=== PATIENT | male | born 1965 | race Caucasian/White ===

== ENCOUNTER 2019-04-03 14:49 | Emergency (ER) | payer BC ==
[2019-04-03 15:50] LABS: #Basophils 0.1 thou/uL (0.0-0.2); #Eosinphils 0.1 thou/uL (0.0-0.7); #Lymphocytes 1.2 thou/uL (1.20-3.40); #Monocytes 0.7 thou/uL (0.11-0.59); #Neutrophils 6.7 thou/uL (1.40-6.50); %Basophils 0.7 % (0.0-1.0); %Eosinophils 0.6 % (0.0-10.0); %Lymphocytes 13.4 % (21.0-51.0); %Monocytes 7.6 % (0.0-10.0); %Neutrophils 77.7 % (42.0-75.0); Hemoglobin 15.4 g/dL (14.0-18.0); Mean Corpuscular Hemoglobin 32.4 pg (27.0-31.0); Mean Corpuscular Volume 92.5 fL (78.0-98.0); Mean Platelet Volume 8.9 fL (7.4-10.4); Platelet Count 240 thou/uL (130-400); RBC Distribution Width 11.3 % (11.5-14.5); Red Blood Cell (RBC) Count 4.75 mill/uL (4.70-6.10); White Blood Cell (WBC) Count 8.7 thou/uL (4.8-10.8)
[2019-04-03 16:02] LABS: ALT (SGPT) 22 U/L (8-55); AST (SGOT) 16 U/L (5-34); Albumin 4.5 g/dL (3.5-5.0); Alkaline Phosphatase 50 U/L (40-150); Anion Gap 17 mmol/L (10-20); BUN (Urea Nitrogen) 13 mg/dL (8.4-25.7); Calc. Creatinine Clearance 0 mL/min (70-130); Calcium 9.8 mg/dL (7.8-10.44); Carbon Dioxide 24 mmol/L (22-29); Chloride 103 mmol/L (98-107); Estimated GFR-MDRD Greater than 90; Globulin 2.6 g/dL (2.4-3.5); Glucose 98 mg/dL (70-105); Potassium 3.8 mmol/L (3.5-5.1); Protein, Total 7.1 g/dL (6.0-8.3); Sodium 140 mmol/L (136-145)
== END 2019-04-03 16:27 | disposition home or self-care (01) ==
LOC: SCSER 14:49
DX: R07.9 Chest pain, unspecified (principal); R40.20 Unspecified coma; F32.9 Major depressive disorder, single episode, unspecified; R73.03 Prediabetes; E78.00 Pure hypercholesterolemia, unspecified; E78.5 Hyperlipidemia, unspecified; I10 Essential (primary) hypertension; Z79.899 Other long term (current) drug therapy
CPT/HCPCS: 80053; 84484; 85025; 93005

== ENCOUNTER 2019-05-20 11:04 | Outpatient (CLI) | payer BC ==
--- NOTE | 2019-05-20 11:58 | CT ---
CT ABDOMEN WITH CONTRAST CT PELVIS WITH CONTRAST: DATE: 05/20/2019 HISTORY: 53-year-old male with generalized abdominal pain, constipation, and weight loss. TECHNIQUE: IV injection of iodinated contrast media: Administered Oral contrast media:Administered FINDINGS: Liver: No focal solid mass. Spleen: No splenomegaly.. Pancreas: No mass or surrounding fat stranding.. Adrenals: No mass.. Kidneys: No hydronephrosis or enhancement abnormalities.. 2 cm left renal lateral upper pole cyst. Ureters: No dilation. Bladder: No pathology identified. Abdominal aorta: No aneurysm. Small bowel: No dilation. Colon: No adjacent fat stranding. Appendix: No dilation or adjacent fat stranding.. Free air: None. Free fluid: None. Lumbar spine: Multilevel high-grade degenerative disc disease at upper and mid levels. Chronic anteri or wedging loss of height of L2. Exaggerated kyphosis at upper lumbar spine. IMPRESSION: 1. No major pathology identified.. 2. Lumbar spondylosis and gibbus. 3. Left renal cyst.
== END 2019-05-20 11:05 | disposition home or self-care (01) ==
LOC: SCSCT 11:04
PROVIDERS: ATTEND Family Medicine
DX: K59.00 Constipation, unspecified (principal); R63.4 Abnormal weight loss; N28.1 Cyst of kidney, acquired; M47.816 Spondylosis without myelopathy or radiculopathy, lumbar region; M43.8X6 Other specified deforming dorsopathies, lumbar region
CPT/HCPCS: 74177

== ENCOUNTER 2019-06-15 12:51 | Outpatient (CLI) | payer BC ==
--- NOTE | 2019-06-15 14:22 | RAD ---
Lumbar spine 6 views: 06/15/2019 COMPARISON: None HISTORY: Lumbar kyphosis, excessive urination, pain in the upper lumbar spine FINDINGS: At L1-2, L2-3, and L3-4 there is disc space narrowing and degenerative endplate change with anterior and lateral osteophyte formation. The neutral lateral examination demonstrates retrolisthesis at L3-4 measuring approximately 1 cm and retrolisthesis at L4-5 measuring approximately 9 mm. There is a vacuum disc at L3-4 anteriorly. On the flexion view there is retrolisthesis at L3-4 measuring 8 mm and at L4-5 measuring 6 mm. Upon e xtension there is retrolisthesis at L3-4 measuring 1.1 cm and at L4-5 measuring 7 mm. No acute osseous abnormality. There is moderately exaggerated kyphosis at the thoracolumbar junction. IMPRESSION: Degenerative changes within the lumbar spine as described above. Findings include multile higinio retrolisthesis, most prominent upon extension.
== END 2019-06-15 12:52 | disposition home or self-care (01) ==
LOC: SCSST 12:51
PROVIDERS: ATTEND Chiropractor
DX: M40.205 Unspecified kyphosis, thoracolumbar region (principal); R35.8 Other polyuria; M47.816 Spondylosis without myelopathy or radiculopathy, lumbar region
CPT/HCPCS: 72100

== ENCOUNTER 2019-08-11 14:11 | Outpatient (CLI) | payer BC ==
[2019-08-11 16:49] LABS: Hemoglobin 14.2 g/dL (14.0-18.0); Mean Corpuscular HGB CONC 32.9 g/dL (32.0-36.0); Mean Corpuscular Hemoglobin 31.7 pg (27.0-31.0); Mean Corpuscular Volume 96.5 fL (78.0-98.0); Mean Platelet Volume 9.3 fL (7.4-10.4); Platelet Count 220 thou/uL (130-400); RBC Distribution Width 11.8 % (11.5-14.5); Red Blood Cell (RBC) Count 4.48 mill/uL (4.70-6.10); White Blood Cell (WBC) Count 6.5 thou/uL (4.8-10.8)
[2019-08-11 16:53] LABS: Bacteria/HPF None Seen HPF (None Seen); Bilirubin Negative (Negative); Blood, Urine Negative (Negative); Clarity Clear (Clear); Glucose, Urine (Dipstick) Normal (Negative); Leukocyte Negative Leu/uL (Negative); Nitrite Negative (Negative); Protein, Urine (Dipstick) Negative (Neg-Trace); RBC/HPF 0-3 HPF (0-3); Squamous Epithelial None Seen HPF (0-3); Urobilinogen Normal mg/dL (Less than 2); WBC/HPF None Seen HPF (0-3)
[2019-08-11 16:58] LABS: INR-International Normal Ratio 0.9; PTT 26.7 SEC (22.9-36.1); Prothrombin Time 12.5 SEC (12.0-14.7)
[2019-08-11 17:13] LABS: Anion Gap 13 mmol/L (10-20); BUN (Urea Nitrogen) 17 mg/dL (8.4-25.7); Calc. Creatinine Clearance 0 mL/min (70-130); Calcium 9.3 mg/dL (7.8-10.44); Carbon Dioxide 27 mmol/L (22-29); Chloride 104 mmol/L (98-107); Estimated GFR-MDRD Greater than 90; Glucose 86 mg/dL (70-105); Potassium 3.8 mmol/L (3.5-5.1); Sodium 140 mmol/L (136-145)
== END 2019-08-11 14:12 | disposition home or self-care (01) ==
LOC: LABBT 14:11
PROVIDERS: ATTEND Urology
DX: Z01.818 Encounter for other preprocedural examination (principal); Z12.5 Encounter for screening for malignant neoplasm of prostate; N40.1 Benign prostatic hyperplasia with lower urinary tract symptoms; R39.15 Urgency of urination; R63.4 Abnormal weight loss; I10 Essential (primary) hypertension; R39.11 Hesitancy of micturition; R35.1 Nocturia
CPT/HCPCS: 80048; 81001; 85027; 85610; 85730; 87086; 93005; 93010

== ENCOUNTER → 2019-08-22 | Day surgery (SDC) | payer BC ==
[2019-08-11 14:31] VITALS: BMI 32.3
[~2019-08-22] MED LIST: Levofloxacin 500 mg/D5W 100 ml Premix Bag ONE
== END ==
LOC: SDC 06:21
PROVIDERS: ATTEND Urology
DX: N40.1 Benign prostatic hyperplasia with lower urinary tract symptoms (principal); Z53.9 Procedure and treatment not carried out, unspecified reason; Z79.899 Other long term (current) drug therapy; Z88.1 Allergy status to other antibiotic agents; Z88.2 Allergy status to sulfonamides; Z88.8 Allergy status to other drugs, medicaments and biological substances; Z91.040 Latex allergy status; Z91.048 Other nonmedicinal substance allergy status
CPT/HCPCS: J1956

== ENCOUNTER 2019-09-07 07:07 | Day surgery (SDC) | payer BC ==
[2019-09-07] MEDS ORDERED: Levofloxacin 500 mg/D5W 100 ml Premix Bag ONE (07:38)
[2019-09-07] MEDS ORDERED: Propofol 500 MG/50 ML VIAL ONE (10:17)
[2019-09-07] MEDS ORDERED: Fentanyl 100 MCG/2 ML VIAL ONE (10:19)
[2019-09-07] MEDS ORDERED: Ondansetron PF 4 MG/2 ML Vial ONE (10:38)
[2019-09-07] MEDS ORDERED: Lidocaine 1% PF 5 ML VIAL ONE (10:38)
[2019-09-07] MEDS ORDERED: EPHEDRINE 25 MG/5 ML SYRINGE ONE (10:38)
[2019-09-07] MEDS ORDERED: PROPOFOL 200 MG/20 ML VIAL ONE (10:38)
[2019-09-07] MEDS ORDERED: Phenazopyridine HCl 97.5 MG TABLET ONE ×2 (11:56→11:57)
[2019-09-07] MEDS ORDERED: hydrALAZINE 20 MG/ML VIAL ONE (12:20)
--- NOTE | 2019-09-07 13:27 | OP ---
DATE OF PROCEDURE: 09/07/2019 PREOPERATIVE DIAGNOSES: 1. A 53-year-old male with history of benign prostatic hyperplasia. 2. History of urgency. POSTOPERATIVE DIAGNOSES: 1. A 53-year-old male with history of benign prostatic hyperplasia. 2. History of urgency. PROCEDURES PERFORMED: Cystoscopy, UroLift implant x 6 ANESTHESIA: LMA. COMPLICATIONS: None apparent. DISPOSITION: To recovery room in stable condition. INDICATIONS FOR PROCEDURE AND HISTORY: Mr. Martini is a 53-year-old male with history of hypertension, epilepsy, with known history of BPH, urgency. He has been on Flomax, however, desired to discontinue the medication, has been provided medical therapy for urgency, frequency, however, has difficulty filling medication due to financial issues. We discussed options of UroLift versus TURP and he desired to proceed with less invasive approach. Risks and complications and indications for the procedure has been reviewed with the patient in detail including, but not limited to: Bleeding, pain, infection, injury to adjacent organs such as neurovascular bundle, chronic pain, possible secondary procedure, possible urolithiasis warranting treatment migrated implant. Questions answered to his satisfaction and he desired to proceed without reservation. DESCRIPTION OF PROCEDURE: After an informed consent was signed, the patient was taken to the operating room, placed in a dorsal lithotomy position with the genitalia prepped and draped in the usual surgical sterile fashion. A 21-Macanese cystoscope was utilized for cystoscopy, which demonstrated normal anterior and posterior urethra. Bilobar hyperplasia of the prostate was noted, moderately obstructing with no evidence of intravesical median lobe. Bladder was entered, which demonstrated the UOs about 2 mm proximal to the bladder neck, diffuse trabeculation consistent with chronic outlet obstruction. No bladder stones or tumors were appreciated. At this time, I transitioned to a UroLift cystoscope with a visual obturator. The first implant was placed on the left side, care was taken to stay approximately a centimeter and half proximal to the bladder neck. Three implants were placed on the left, three implants on the right, a total of 6 implants. At the end of the procedure, he did have a good anterior channel with resolution of his obstructing lateral lobes. Minimal bleeding was noted. He had an 18-Macanese Pablo catheter placed after the surgery and I will watch him for degree of hematuria. PLAN: Voiding trial in PACU. He is to continue his BPH medications for now. He will be discharged with Levaquin x5 days, Azo p.r.n. patient had successful voiding trial with Azo tinged urine discharge without Pablo catheter. Job ID: [id number] [facility]
== END 2019-09-07 14:01 | disposition home or self-care (01) ==
LOC: SDC 07:07
PROVIDERS: ATTEND Urology
PROC: 0T7D8DZ Dilation of Urethra with Intraluminal Device, Via Natural or Artificial Opening Endoscopic (ICD-10-PCS; principal; 2019-09-07)
DX: N40.1 Benign prostatic hyperplasia with lower urinary tract symptoms (principal); R39.15 Urgency of urination; R35.1 Nocturia; R39.11 Hesitancy of micturition; I10 Essential (primary) hypertension; Z79.899 Other long term (current) drug therapy; Z88.2 Allergy status to sulfonamides; Z88.8 Allergy status to other drugs, medicaments and biological substances; Z91.048 Other nonmedicinal substance allergy status
CPT/HCPCS: C1889; J0360; J1956; J2001; J2405; J2704; J3010

== ENCOUNTER 2020-05-04 07:55 | Outpatient (CLI) | payer OTHER ==
--- NOTE | 2020-05-04 09:03 | CT ---
CTA OF THE CHEST WITH AND WITHOUT IV CONTRAST AND 3-D REFORMATTED IMAGING INDICATION: Thoracic aortic aneurysm without rupture COMPARISON: CT the abdomen and pelvis from [facility] dated May 20, 2019. No CT comparisons of the thorax are available. FINDINGS: Aorta: No acute aortic stenosis or occlusion is evident. The ascending aorta is ectatic measuring 4.3 cm. The aortic arch is mildly aneurysmal measuring 3.3 cm. The descending thoracic aorta at the level the right main pulmonary artery is normal in caliber measuring 2.8 cm. The thoracic aorta at th e level of the hiatus is normal in caliber measuring 2.7 cm. There are mild vascular calcifications of the aortic arch. There are mild coronary artery calcifications. Central pulmonary artery: No central pulmonary embolus demonstrated. Lungs: No focal consolidation, pleural effusion or pneumothorax is evident. There are areas of nonspe cific subsegmental volume loss in the right lower lobe with elevation of the right hemidiaphragm. There are areas of subsegmental 1 loss in the right middle lobe. Upper abdomen: There is a stable left renal cyst measuring 2.2 cm. Adrenal glands are normal appearin g. No acute abnormality is seen within the upper abdomen. Osseous structures: No acute osseous abnormality. There is scattered degenerative and osteoarthritic change present. IMPRESSION: 1. Mild ectasia of the ascending aorta measuring up to 4.3 cm. 2. 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 3. No aneurysmal dilatation of the descending thoracic aorta. 4. Elevation the right hemidiaphragm with mild right basilar subsegmental volume loss. 5. Left renal cyst.
[2020-05-04] MEDS ORDERED: Iopamidol-370 76% 500 ML 1 ML ONE (13:16)
== END 2020-05-04 07:56 | disposition home or self-care (01) ==
LOC: BICCT 07:55
PROVIDERS: ATTEND Internal Medicine Cardiovascular Disease
DX: I71.2 Thoracic aortic aneurysm, without rupture (principal); N28.1 Cyst of kidney, acquired; R91.8 Other nonspecific abnormal finding of lung field
CPT/HCPCS: 71275; Q9967

== ENCOUNTER 2023-02-12 08:58 | Outpatient (CLI) | payer BC | END 2023-02-12 08:59 | disposition home or self-care (01) | LOC: BICCT 08:58 | PROVIDERS: ATTEND Internal Medicine Cardiovascular Disease | DX: I71.20 Thoracic aortic aneurysm, without rupture, unspecified (principal) | CPT/HCPCS: 71275; 82565 ==

== ENCOUNTER 2024-01-14 09:11 | Outpatient (CLI) | payer BC | END 2024-01-14 09:12 | disposition home or self-care (01) | LOC: NM 09:11 | PROVIDERS: ATTEND Psychiatry & Neurology Neurology | DX: R90.89 Other abnormal findings on diagnostic imaging of central nervous system (principal); R94.8 Abnormal results of function studies of other organs and systems; M89.9 Disorder of bone, unspecified | CPT/HCPCS: 78306; A9503 ==